=== PATIENT | male | born 1955 | race Caucasian/White ===

== ENCOUNTER → 2017-07-22 | Outpatient (CLI) | payer OTHER ==
[~2017-07-22] MED LIST: LOTREL 5-20 MG1 EACH PO; SIMVASTATIN40 MG PO
--- NOTE | 2017-07-22 08:47 | Diagnostic Imaging Report ---
PROCEDURE:US LIVER COMPARISON:None. INDICATIONS:Fatty Liver TECHNIQUE: Etienne scale color Doppler ultrasound liver FINDINGS: Right liver span 14.7 cm. Mildly increased parenchymal echogenicity with a smooth margin. Portal vein diameter 1.1 cm; normal flow direction. No bile duct dilation. Normal gallbladder. Common bile duct diameter 5 mm. Image portions of the IVC, aorta, pancreas and right kidney are normal. CONCLUSION: Mildly increased hepatic echogenicity consistent with mild steatosis. Dictated by: Epi Avalos M.D. on 07/22/2017 at 8:47 Electronically approved by: Epi Avalos M.D. on 07/22/2017 at 8:47
== END ==
LOC: US 07:07
PROVIDERS: ATTEND Internal Medicine Gastroenterology
DX: K76.0 Fatty (change of) liver, not elsewhere classified (principal)
CPT/HCPCS: 76705

== ENCOUNTER → 2017-08-30 | Day surgery (SDC) | payer OTHER ==
[~2017-08-30] MED LIST changes: +ARTHRITIS PAIN; +CENTRUM COMPLE1 EACH; +CO Q 10; +FENTANYL CITRATE/PF 100MCG/2 ML INJ ONE; +GLUCOSAMINE; +HYOSCYAMINE SULFATE 0.5 MG/ML AMP ONE; +IRON; +LIDOCAINE HCL 2% LOCAL INJ 5 ML SDV VIAL INJ ONE; +MIDAZOLAM HCL 2 MG/2 ML VIAL ONE; +PROPOFOL IV EMULSION 10 MG/ML 50 ML VIAL ONE; +SIMVASTATIN20 MG PO
--- NOTE | 2017-08-30 14:08 | Operative Report ---
DATE OF PROCEDURE: August 30, 2017 REFERRING PHYSICIAN: Chino Hannon MD PROCEDURE PERFORMED: Colonoscopy and polypectomy. INDICATIONS FOR COLONOSCOPY: Colorectal cancer screening. Personal history of colon polyps. MEDICATION: Patient was done under MAC. Please see anesthesiologist's note. PROCEDURE: With the patient in the left lateral decubitus position, the flexible fiberoptic Olympus colonoscope was inserted into the rectum with ease and advanced all the way to the cecum. One polyp was snared and 1 polyp was hot biopsied from the cecum. One polyp was hot biopsied from the ascending colon. One polyp was snared from the transverse colon. Diverticular disease was noted to involve the distal descending and the sigmoid colon. One polyp was hot biopsied from the sigmoid. Two polyps were hot biopsied from the rectum. The scope was then retroflexed into the distal rectum, and small internal hemorrhoids were noted, none of which was actively bleeding. The scope was then straightened out. The rectosigmoid area as well as the distal rectal area were decompressed. Scope was subsequently withdrawn. Patient tolerated the procedure well. IMPRESSION 1. Cecal polyps times 2, one snared and one hot biopsied. 2. Ascending colon polyp, hot biopsied. 3. Transverse colon polyp, snared. 4. Diverticulosis. 5. Sigmoid colon polyp times 1, hot biopsied. 6. Rectal polyps times 2, hot biopsied. 7. Internal hemorrhoids none actively bleeding. PLAN: Follow up histology. Initiate high-fiber, low-fat diet. Initiate high-fiber supplement. Patient will need a followup colonoscopy in 3 years. Job#: [id number] cc:CHINO HANNON MD
--- OUTSIDE RECORDS SUMMARY | 2017-09-01 13:30 | XMS REPORT ---
Author Author [facility] Address Unknown Phone Unavailable Care Team Providers Care [employer] Goods Inspector Name Role Phone KALEB YARBROUGH Unavailable Unavailable Problems This patient has no known problems. Allergies, Adverse Reactions, Alerts This patient has no known allergies or adverse reactions. Medications This patient has no known medications. Results Test Description Test Time Test Comments Text Results Atomic Results Result Comments LIVER [place] [address] Patient Name: ELIDA NARANJO MR #: [id number] : 1955 Age/Sex: 62/M Req #: [id number] Adm Physician: Ordered by: KALEB YARBROUGH MD Report #: [id number] Location: US Room/Bed: Procedure: [id number] US/ US LIVER Exam Date: 07/22/17 Exam Time: 0810 REPORT STATUS: Signed PROCEDURE: US LIVER COMPARISON: None. INDICATIONS: Fatty Liver TECHNIQUE: Etienne scale color Doppler ultrasound liver FINDINGS: Right liver span 14.7 cm. Mildly increased parenchymal echogenicity with a smooth margin. Portal vein diameter 1.1 cm; normal flow direction. No bile duct dilation. Normal gallbladder. Common bile duct diameter 5 mm. Image portions of the IVC, aorta, pancreas and right kidney are normal. CONCLUSION: Mildly increased hepatic echogenicity consistent with mild steatosis. Dictated by: Ana María Avalos M.D. on 07/22/2017 at 8:47 Electronically approved by: Ana María Avalos M.D. on 07/22/2017 at 8:47 Dictated By: ANA MARÍA AVALOS MD 6 Transcribed By: LAUREN on 07/22/17846 COPY TO: KALEB YARBROUGH MD
== END | disposition home or self-care (01) ==
LOC: OR 05:58
PROVIDERS: ATTEND Internal Medicine Gastroenterology
DX: Z12.11 Encounter for screening for malignant neoplasm of colon (principal); D12.0 Benign neoplasm of cecum; K62.1 Rectal polyp; K57.30 Diverticulosis of large intestine without perforation or abscess without bleeding; K64.8 Other hemorrhoids; I10 Essential (primary) hypertension; E78.00 Pure hypercholesterolemia, unspecified; K76.0 Fatty (change of) liver, not elsewhere classified; Z01.810 Encounter for preprocedural cardiovascular examination; Z68.32 Body mass index [BMI] 32.0-32.9, adult
CPT/HCPCS: 45384; 45385; 93005; J1980; J2001; J2250; 45378